=== PATIENT | female | born 1945 | race Caucasian/White ===

== ENCOUNTER 2020-05-14 11:24 | Outpatient (CLI) | payer MEDICARE, SELFPAY ==
--- NOTE | 2020-05-14 10:42 | DI.RAD_ITS ---
EXAM: XR FINGER RT RING CLINICAL HISTORY: deformity of finger TECHNIQUE: COMPARISON: No exams were available for comparison FINDINGS: Three views were obtained. There is a well-circumscribed 7 millimeterlytic lesion of base of the dis alisson phalanx of the ring finger with a sclerotic rim. This may represent a degenerative subchondral c yst . Other etiologies including epidermal inclusion cyst are possible. Moderate degenerative rodriguez es noted involving the IP joints of the ring finger. 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 RADIATION DOSE DELIVERED: Total DLP
== END 2020-05-14 11:44 ==
PROVIDERS: PCP Nurse Practitioner Family; Referring Provider Nurse Practitioner Family; Visit Provider Orthopaedic Surgery
DX: M20.091 Other deformity of right finger(s) (principal); M85.441 Solitary bone cyst, right hand; M19.041 Primary osteoarthritis, right hand; M79.641 Pain in right hand
CPT/HCPCS: 99201; 99202; 73140

== ENCOUNTER 2020-05-19 08:18 | Day surgery (SDC) | payer MEDICARE, SELFPAY ==
[2020-05-19 09:01] VITALS: BP 135/86; PULSE 105; RESP 16; TEMP 36.6; O2SAT 95
[2020-05-19] MEDS: Lidocaine 2% Multi-Dose 50 ML VIAL (09:52)
--- NOTE | 2020-05-19 10:00 | SKI_PTH ---
PATIENT: Bonny Huerta LOC: [facility] U#:[id number] AGE/SX: 75/F ROOM: RE05/19/[address]: Nate Welsh MD : [id number] BED: DIS: 05/19/2020 SPEC #: [id number] RECD: 05/19/20 12:31 STATUS: WILMAN REQ #: [id number] GALE: 05/19/20 10:[address]: Nate Welsh DEPT: Surgical Specimen RECD BY: Miley Neves ENTERED: 05/19/20 12:33 SP TYPE: SARA BLAKE DR: Enid Boyer Tissues: 1 - SKIN CYST/TAG/DEBRIDEMENT Procedures: GROSS AND MICRO LEVEL 3 DECALCIFICATION Comments: [id number]
--- NOTE | 2020-05-19 10:35 | W.PM.DSUDISC ---
Discharge Plan Disposition Patient Disposition: HOME Condition: Good Discharge Details Reason For Visit: FINGERNAIL EXCISION, CYST EXCISION DISTAL PHALANX Attending Provider: Nate Welsh Primary Care Provider: Enid Boyer Home Meds and New Rx's Prescriptions: New oxycodone-acetaminophen 5-325 mg tablet 1 tab PO Q6H PRN (Reason: pain) Qty: 7 RF: 0 Continued aspirin [Aspir-81] 81 MG tablet,delayed release (DR/EC) 1 tab PO DAILY RF: 0 calcium carbonate-vitamin D3 [Caltrate with Vitamin D3] 1 EACH tablet 1 ea PO DAILY RF: 0 simvastatin [Zocor] 20 MG tablet 1 tab PO HS Qty: 90 RF: 4 cholecalciferol (vitamin D3) 1,000 UNITS tablet 1,000 units PO DAILY RF: 0 Discharge Instructions Additional Instructions: Keep dressings dry. Don't be concerned if there is some bleeding through the dressings. Follow up in 's office in one week for dressing change and wound check. Take tylenol or ibuprofen for pain. Referrals: Nate Welsh MD [ [facility] STAFF PHYSICIAN] - (f/u in one week) Equipment/Supplies: Splint Activity:: Activity as Tolerated Remove Dressings/Wound Care:: Do Not Remove Shower/Bathe:: Cover Diet:: As Tolerated Discharge Orders Discharge Orders: Discharge Order (Routine); Ordered 05/19/20 Ordered By: Nate Welsh
--- NOTE | 2020-05-19 13:18 | ROE_ITS ---
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 SURGEON: Nate Welsh ANESTHESIA: local PATHOLOGY: other COMPLICATIONS: None Patient was transported to: same day Patient's condition: stable Indications: Is a 75-year-old white female who is noted a deformity of the fingernail of her right ring finger of several months duration. X-rays show that the deformity was caused by an expanding intraosseous cyst in the distal phalanx of the right ring finger. The dorsal expansion of this cyst caused the germinal matrix to be distorted along with the fingernail. X-rays confirmed the interosseous cyst of the distal phalanx. It is extra-articular but expanding dorsally. It appears benign. Excision of the cyst with biopsy was recommended to correct the deformity. I indicated that I might not be able to preserve the germinal matrix of the nail. If that was the case intraoperatively would remove the fingernail and the germinal matrix along with the cyst. Risk and complication procedure explained to patient in detail. She agreed with my recommendations. Procedure Description: Patient taken the operating room on 05/18/2020 she operating table. The right hand was prepped and draped free in usual sterile fashion. [place] drain was used around the the ring finger as a tourniquet. A digital block was accomplished using a 2% Xylocaine solution and the 0.5% Marcaine with epinephrine solution at the level of the metacarpal neck of the ring finger. Incision was made at the ulnar corner of the cuticle of the fingernail and sharp dissection was used to free the skin from the fingernail and the germinal matrix and exposing the extensor tendon attachment to the distal phalanx. I was able to enter the cyst on the ulnar side of the distal phalanx and avoid detaching the extensor tendon from the distal phalanx. The cyst was filled with a friable fibrous tissue. I curetted this tissue and sent it for pathological examination. I then proceeded to use the curettes and a rongeur to excise the dorsal bone that was impinging on the germinal matrix. The germinal matrix could not be salvaged over the ulnar one half of the matrix. I therefore decided to remove the damaged nail and the germinal matrix in its entirety. This will prevent recurrent deformity of the nail. I remove the germinal matrix by excising it sharply with a scalpel and further curetting it so there were no remnants of the germinal matrix remaining. I left the nailbed covering the distal phalanx intact. The wound was irrigated with saline solution. I cut a small piece of aluminum foil from the package of the Xeroform gauze inserted it under the skin to the extensor tendon attachment. I then sutured it in place with 2 sutures of 4-0 nylon 1 radial and 1 ulna. I then closed the incision that was made at the ulnar corner of the cuticle and curving onto the distal phalanx with a few interrupted 4-0 nylon sutures. This reconstituted the cuticle of the nail and gave the finger a more anatomic appe arance. I then performed a digital nerve block just proximal to the end of the incision with 0.5% Marcaine with epinephrine solution. The [place] tourniquet was released. Hemostasis obtained with simple direct pressure. Wound was dressed with Xeroform gauze followed by tube gauze. A dorsal AlumaFoam splint was applied over the dressings to keep the DIP joint in extension and avoid injury to the extensor tendon attachment. Patient tolerated suture well was discharged to day surgery in good condition. Patient was discharged home from day surgery unit with instructions to keep her dressings clean and dry for the next week. She will follow-up with Dr. Welsh in 1 week for dressing change and wound check. Should take Tylenol or ibuprofen for pain as needed.
== END 2020-05-19 11:17 | disposition home or self-care (01) ==
PROVIDERS: PCP Nurse Practitioner Family; Visit Provider Orthopaedic Surgery
PROC: (CPT 26210; principal; 2020-05-19 09:00)
DX: D16.11 Benign neoplasm of short bones of right upper limb (principal); L60.8 Other nail disorders
CPT/HCPCS: 26210; 11750; 88304; 88311

== ENCOUNTER 2020-05-27 10:51 | Outpatient (CLI) | payer MEDICARE, SELFPAY ==
--- NOTE | 2020-05-27 10:15 | DI.RAD_ITS ---
EXAM: XR FINGER RT RING INDICATION: f/u. COMPARISON: No exams were available for comparison TECHNIQUE: 2D digital imaging was performed. FINDINGS: The cystic area is again noted in the base of the distal phalanx. Degenerative changes are noted at the distal interphalangeal joint. The bones appear osteopenic. DATA REPOSITORY: RADIATION DOSE DELIVERED:
== END 2020-05-27 11:11 ==
PROVIDERS: PCP Nurse Practitioner Family; Referring Provider Nurse Practitioner Family; Visit Provider Orthopaedic Surgery
DX: M19.041 Primary osteoarthritis, right hand (principal); Z47.89 Encounter for other orthopedic aftercare
CPT/HCPCS: 73140

== ENCOUNTER → 2020-06-03 08:53 | Outpatient (BNVA) | payer MEDICARE, SELFPAY | PROVIDERS: PCP Nurse Practitioner Family; Referring Provider Nurse Practitioner Family; Visit Provider Orthopaedic Surgery | DX: M19.041 Primary osteoarthritis, right hand (principal); Z47.89 Encounter for other orthopedic aftercare ==

== ENCOUNTER → 2020-06-17 08:47 | Outpatient (BNVA) | payer MEDICARE, SELFPAY | PROVIDERS: PCP Nurse Practitioner Family; Referring Provider Nurse Practitioner Family; Visit Provider Orthopaedic Surgery | DX: Z47.89 Encounter for other orthopedic aftercare (principal); D16.11 Benign neoplasm of short bones of right upper limb ==

== ENCOUNTER → 2020-09-24 12:18 | Outpatient (BNVA) | payer MEDICARE, SELFPAY | PROVIDERS: PCP Nurse Practitioner Family; Referring Provider Optometrist; Visit Provider Psychiatry & Neurology Neurology | DX: H02.401 Unspecified ptosis of right eyelid (principal) | CPT/HCPCS: 99215 ==

== ENCOUNTER → 2020-11-05 07:18 | Outpatient (BNVA) | payer MEDICARE, SELFPAY | PROVIDERS: PCP Nurse Practitioner Family; Referring Provider Nurse Practitioner Family; Visit Provider Psychiatry & Neurology Neurology | DX: G70.00 Myasthenia gravis without (acute) exacerbation (principal) | CPT/HCPCS: 99214 ==

== ENCOUNTER → 2020-12-02 12:19 | Outpatient (BNVA) | payer MEDICARE, SELFPAY | PROVIDERS: PCP Nurse Practitioner Family; Referring Provider Nurse Practitioner Family; Visit Provider Psychiatry & Neurology Neurology | DX: G70.00 Myasthenia gravis without (acute) exacerbation (principal) | CPT/HCPCS: 99214 ==

== ENCOUNTER → 2021-01-14 07:37 | Outpatient (BNVA) | payer MEDICARE, SELFPAY | PROVIDERS: PCP Nurse Practitioner Family; Referring Provider Nurse Practitioner Family; Visit Provider Psychiatry & Neurology Neurology | DX: G70.00 Myasthenia gravis without (acute) exacerbation (principal) | CPT/HCPCS: 99443 ==

== ENCOUNTER 2021-01-20 03:34 | Outpatient (CLI) | payer MEDICARE, SELFPAY ==
[2021-01-20 08:02] LABS: Abs Immature Grans 0.07 10^3/uL (0.0-0.06); Absolute Eosinophil Count 0.33 10^3/uL (0.0-0.7); Absolute Lymphocyte Count 1.38 10^3/uL (1.2-3.4); Absolute Monocyte Count 0.61 10^3/uL (0.1-0.8); Absolute Neutrophil Count 9.72 10^3/uL (1.2-6.7); Basophils % 0.7; Eosinophils % 2.7; HCT 45.9 % (36.0-46.0); HGB 14.3 g/dL (11.2-15.7); Immature Grans % 0.6; Lymphocytes % 11.3; MCH 27.3 pg (27.0-33.0); MCHC 31.2 % (32.0-36.0); MCV 87.6 fL (80-95); MPV 8.9 fL (8.0-11.0); Neutrophils % 79.7; Nucleated RBC 0 %; Platelet Count 208 10^3/uL (130-400); RBC 5.24 10^6/uL (3.93-5.22); RDW 13.6 % (11.7-14.6); RDW-SD 43.8 fL; WBC 12.19 10^3/uL (4.4-10.8)
[2021-01-20 08:03] LABS: Absolute Basophil Count 0.09 10^3/uL (0.0-0.2)
[2021-01-20 08:15] LABS: ALT 16 U/L (14-59); AST 12 U/L (15-37); Albumin 3.2 g/dL (3.4-5.0); Alkaline Phosphatase 78 U/L (46-116); Anion Gap 7.3 mmol/L (3-11); BUN 11 mg/dL (7-18); Bilirubin, Total 0.7 mg/dL (0.2-1.0); CO2 29.7 mmol/L (21.0-32.0); CREATININE 0.9 mg/dL (0.55-1.02); Calcium 9.6 mg/dL (8.5-10.1); Chloride 107 mmol/L (98-107); Glucose 100 mg/dL (74-106); Magnesium 1.9 mg/dL (1.8-2.4); Potassium 3.9 mmol/L (3.5-5.1); Sodium 144 mmol/L (136-145); Total Protein 7.5 g/dL (6.4-8.2)
== END 2021-01-20 03:35 | disposition home or self-care (01) ==
LOC: LBO 03:34
PROVIDERS: PCP Nurse Practitioner Family; Visit Provider Internal Medicine Medical Oncology
DX: C34.12 Malignant neoplasm of upper lobe, left bronchus or lung (principal)
CPT/HCPCS: 36415; 80053; 83735; 85025

== ENCOUNTER 2021-01-27 02:50 | Outpatient (CLI) | payer MEDICARE, SELFPAY ==
[2021-01-27 08:18] LABS: Absolute Basophil Count 0.06 10^3/uL (0.0-0.2); Absolute Lymphocyte Count 1.07 10^3/uL (1.2-3.4); Absolute Monocyte Count 0.39 10^3/uL (0.1-0.8); Absolute Neutrophil Count 6.62 10^3/uL (1.2-6.7); Basophils % 0.7; Eosinophils % 2.4; HCT 40.4 % (36.0-46.0); HGB 13.2 g/dL (11.2-15.7); Immature Grans % 1.2; Lymphocytes % 12.7; MCH 27.9 pg (27.0-33.0); MCHC 32.7 % (32.0-36.0); MCV 85.4 fL (80-95); MPV 9.5 fL (8.0-11.0); Monocytes % 4.6; Neutrophils % 78.4; Nucleated RBC 0 %; Platelet Count 186 10^3/uL (130-400); RBC 4.73 10^6/uL (3.93-5.22); RDW 13.3 % (11.7-14.6); WBC 8.44 10^3/uL (4.4-10.8)
[2021-01-27 08:26] LABS: ALT 21 U/L (14-59); AST 8 U/L (15-37); Alkaline Phosphatase 74 U/L (46-116); Anion Gap 8.1 mmol/L (3-11); BUN 14 mg/dL (7-18); Bilirubin, Total 0.5 mg/dL (0.2-1.0); CO2 27.9 mmol/L (21.0-32.0); CREATININE 0.7 mg/dL (0.55-1.02); Calcium 9.2 mg/dL (8.5-10.1); Chloride 106 mmol/L (98-107); Glucose 102 mg/dL (74-106); Potassium 4.3 mmol/L (3.5-5.1); Sodium 142 mmol/L (136-145); Total Protein 6.9 g/dL (6.4-8.2)
== END 2021-01-27 02:51 | disposition home or self-care (01) ==
LOC: LBO 02:50
PROVIDERS: PCP Nurse Practitioner Family; Visit Provider Internal Medicine Medical Oncology
DX: C34.12 Malignant neoplasm of upper lobe, left bronchus or lung (principal)
CPT/HCPCS: 36415; 80053; 83735; 85025

== ENCOUNTER 2021-02-09 03:02 | Outpatient (CLI) | payer MEDICARE, SELFPAY ==
[2021-02-09 09:14] LABS: Abs Immature Grans 0.06 10^3/uL (0.0-0.06); Absolute Basophil Count 0.09 10^3/uL (0.0-0.2); Absolute Eosinophil Count 0.05 10^3/uL (0.0-0.7); Absolute Lymphocyte Count 1.43 10^3/uL (1.2-3.4); Absolute Monocyte Count 0.52 10^3/uL (0.1-0.8); Absolute Neutrophil Count 5.45 10^3/uL (1.2-6.7); Basophils % 1.2; Eosinophils % 0.7; HCT 41.7 % (36.0-46.0); HGB 13.3 g/dL (11.2-15.7); Immature Grans % 0.8; Lymphocytes % 18.8; MCH 28.1 pg (27.0-33.0); MCHC 31.9 % (32.0-36.0); MPV 8.8 fL (8.0-11.0); Monocytes % 6.8; Neutrophils % 71.7; Nucleated RBC 0 %; Platelet Count 168 10^3/uL (130-400); RBC 4.74 10^6/uL (3.93-5.22); RDW 14.6 % (11.7-14.6)
[2021-02-09 09:28] LABS: ALT 18 U/L (14-59); AST 11 U/L (15-37); Albumin 3.2 g/dL (3.4-5.0); Alkaline Phosphatase 80 U/L (46-116); Anion Gap 7.4 mmol/L (3-11); BUN 13 mg/dL (7-18); Bilirubin, Total 0.3 mg/dL (0.2-1.0); CO2 28.6 mmol/L (21.0-32.0); CREATININE 0.8 mg/dL (0.55-1.02); Chloride 108 mmol/L (98-107); Glucose 100 mg/dL (74-106); Magnesium 2.1 mg/dL (1.8-2.4); Potassium 4.1 mmol/L (3.5-5.1); Sodium 144 mmol/L (136-145); Total Protein 6.6 g/dL (6.4-8.2)
== END 2021-02-09 03:03 | disposition home or self-care (01) ==
LOC: LBO 03:02
PROVIDERS: PCP Nurse Practitioner Family; Visit Provider Internal Medicine Medical Oncology
DX: C34.12 Malignant neoplasm of upper lobe, left bronchus or lung (principal)
CPT/HCPCS: 36415; 80053; 83735; 85025

== ENCOUNTER 2021-02-16 03:18 | Outpatient (CLI) | payer MEDICARE, SELFPAY ==
[2021-02-16 09:14] LABS: Abs Immature Grans 0.13 10^3/uL (0.0-0.06); Absolute Basophil Count 0.09 10^3/uL (0.0-0.2); Absolute Eosinophil Count 0.02 10^3/uL (0.0-0.7); Absolute Lymphocyte Count 1.09 10^3/uL (1.2-3.4); Absolute Monocyte Count 0.18 10^3/uL (0.1-0.8); Absolute Neutrophil Count 6.93 10^3/uL (1.2-6.7); Basophils % 1.1; Eosinophils % 0.2; HCT 44.5 % (36.0-46.0); Immature Grans % 1.5; Lymphocytes % 12.9; MCH 27.9 pg (27.0-33.0); MCHC 31.5 % (32.0-36.0); MCV 88.6 fL (80-95); MPV 9.7 fL (8.0-11.0); Monocytes % 2.1; Neutrophils % 82.2; Nucleated RBC 0 %; Platelet Count 109 10^3/uL (130-400); RBC 5.02 10^6/uL (3.93-5.22); RDW 14.3 % (11.7-14.6); RDW-SD 45.6 fL; WBC 8.44 10^3/uL (4.4-10.8)
[2021-02-16 09:27] LABS: ALT 21 U/L (14-59); AST 14 U/L (15-37); Albumin 3.4 g/dL (3.4-5.0); Alkaline Phosphatase 66 U/L (46-116); Anion Gap 7.7 mmol/L (3-11); BUN 13 mg/dL (7-18); Bilirubin, Total 0.4 mg/dL (0.2-1.0); CO2 29.3 mmol/L (21.0-32.0); CREATININE 0.8 mg/dL (0.55-1.02); Calcium 9.6 mg/dL (8.5-10.1); Chloride 104 mmol/L (98-107); Glucose 102 mg/dL (74-106); Magnesium 1.9 mg/dL (1.8-2.4); Potassium 4.3 mmol/L (3.5-5.1); Sodium 141 mmol/L (136-145); Total Protein 6.6 g/dL (6.4-8.2)
== END 2021-02-16 03:19 | disposition home or self-care (01) ==
LOC: LBO 03:18
PROVIDERS: PCP Nurse Practitioner Family; Visit Provider Internal Medicine Medical Oncology
DX: C34.12 Malignant neoplasm of upper lobe, left bronchus or lung (principal)
CPT/HCPCS: 36415; 80053; 83735; 85025

== ENCOUNTER 2021-03-09 03:15 | Outpatient (CLI) | payer MEDICARE, SELFPAY ==
[2021-03-09 12:14] LABS: Abs Immature Grans 0.09 10^3/uL (0.0-0.06); Absolute Basophil Count 0.05 10^3/uL (0.0-0.2); Absolute Eosinophil Count 0.01 10^3/uL (0.0-0.7); Absolute Lymphocyte Count 0.85 10^3/uL (1.2-3.4); Absolute Neutrophil Count 9.21 10^3/uL (1.2-6.7); Basophils % 0.5; Eosinophils % 0.1; HCT 43.7 % (36.0-46.0); HGB 13.9 g/dL (11.2-15.7); Immature Grans % 0.9; Lymphocytes % 8.2; MCH 28.9 pg (27.0-33.0); MCHC 31.8 % (32.0-36.0); MCV 90.9 fL (80-95); MPV 8.6 fL (8.0-11.0); Monocytes % 1.9; Neutrophils % 88.4; Nucleated RBC 0 %; Platelet Count 154 10^3/uL (130-400); RBC 4.81 10^6/uL (3.93-5.22); RDW 16.5 % (11.7-14.6); WBC 10.41 10^3/uL (4.4-10.8)
[2021-03-09 12:28] LABS: ALT 19 U/L (14-59); AST 11 U/L (15-37); Albumin 3.6 g/dL (3.4-5.0); Alkaline Phosphatase 66 U/L (46-116); Anion Gap 10.5 mmol/L (3-11); BUN 15 mg/dL (7-18); Bilirubin, Total 0.5 mg/dL (0.2-1.0); CO2 25.5 mmol/L (21.0-32.0); CREATININE 0.8 mg/dL (0.55-1.02); Calcium 9.4 mg/dL (8.5-10.1); Chloride 107 mmol/L (98-107); Glucose 119 mg/dL (74-106); Potassium 4.2 mmol/L (3.5-5.1); Sodium 143 mmol/L (136-145); Total Protein 6.9 g/dL (6.4-8.2)
== END 2021-03-09 03:16 | disposition home or self-care (01) ==
LOC: LBO 03:15
PROVIDERS: PCP Nurse Practitioner Family; Visit Provider Internal Medicine Medical Oncology
DX: C34.12 Malignant neoplasm of upper lobe, left bronchus or lung (principal)
CPT/HCPCS: 36415; 80053; 83735; 85025

== ENCOUNTER 2021-03-16 03:42 | Outpatient (CLI) | payer MEDICARE, SELFPAY ==
[2021-03-16 13:06] LABS: Abs Immature Grans 0.07 10^3/uL (0.0-0.06); Absolute Basophil Count 0.05 10^3/uL (0.0-0.2); Absolute Eosinophil Count 0.02 10^3/uL (0.0-0.7); Absolute Lymphocyte Count 0.67 10^3/uL (1.2-3.4); Absolute Monocyte Count 0.22 10^3/uL (0.1-0.8); Basophils % 0.8; Eosinophils % 0.3; HCT 40.6 % (36.0-46.0); HGB 12.9 g/dL (11.2-15.7); Immature Grans % 1.2; Lymphocytes % 11.3; MCH 29.1 pg (27.0-33.0); MCHC 31.8 % (32.0-36.0); MCV 91.4 fL (80-95); Monocytes % 3.7; Neutrophils % 82.7; Nucleated RBC 0 %; Platelet Count 179 10^3/uL (130-400); RBC 4.44 10^6/uL (3.93-5.22); RDW-SD 53.1 fL; WBC 5.93 10^3/uL (4.4-10.8)
[2021-03-16 13:19] LABS: ALT 28 U/L (14-59); AST 11 U/L (15-37); Albumin 3.6 g/dL (3.4-5.0); Alkaline Phosphatase 72 U/L (46-116); Anion Gap 9.5 mmol/L (3-11); BUN 13 mg/dL (7-18); Bilirubin, Total 0.3 mg/dL (0.2-1.0); CO2 27.5 mmol/L (21.0-32.0); CREATININE 0.7 mg/dL (0.55-1.02); Calcium 9.6 mg/dL (8.5-10.1); Chloride 105 mmol/L (98-107); Glucose 109 mg/dL (74-106); Magnesium 1.9 mg/dL (1.8-2.4); Potassium 4.6 mmol/L (3.5-5.1); Sodium 142 mmol/L (136-145); Total Protein 6.7 g/dL (6.4-8.2)
== END 2021-03-16 03:43 | disposition home or self-care (01) ==
LOC: LBO 03:42
PROVIDERS: PCP Nurse Practitioner Family; Visit Provider Internal Medicine Medical Oncology
DX: C34.12 Malignant neoplasm of upper lobe, left bronchus or lung (principal)
CPT/HCPCS: 36415; 80053; 83735; 85025

== ENCOUNTER → 2021-03-18 14:34 | Outpatient (BNVA) | payer MEDICARE, SELFPAY | PROVIDERS: PCP Nurse Practitioner Family; Referring Provider Nurse Practitioner Family; Visit Provider Psychiatry & Neurology Neurology | DX: G70.00 Myasthenia gravis without (acute) exacerbation (principal) | CPT/HCPCS: 99213 ==

== ENCOUNTER 2021-03-30 02:19 | Outpatient (CLI) | payer MEDICARE, SELFPAY ==
[2021-03-30 12:24] LABS: Abs Immature Grans 0.06 10^3/uL (0.0-0.06); Absolute Basophil Count 0.04 10^3/uL (0.0-0.2); Absolute Eosinophil Count 0.01 10^3/uL (0.0-0.7); Absolute Monocyte Count 0.25 10^3/uL (0.1-0.8); Absolute Neutrophil Count 5.45 10^3/uL (1.2-6.7); Basophils % 0.6; Eosinophils % 0.1; HCT 41.4 % (36.0-46.0); HGB 13.2 g/dL (11.2-15.7); Immature Grans % 0.9; Lymphocytes % 14.7; MCH 29.2 pg (27.0-33.0); MCHC 31.9 % (32.0-36.0); MCV 91.6 fL (80-95); Monocytes % 3.7; Nucleated RBC 0 %; Platelet Count 103 10^3/uL (130-400); RBC 4.52 10^6/uL (3.93-5.22); RDW 16.6 % (11.7-14.6); RDW-SD 55.2 fL; WBC 6.81 10^3/uL (4.4-10.8)
[2021-03-30 12:56] LABS: ALT 21 U/L (14-59); AST 12 U/L (15-37); Albumin 3.7 g/dL (3.4-5.0); Alkaline Phosphatase 64 U/L (46-116); Anion Gap 8.6 mmol/L (3-11); BUN 13 mg/dL (7-18); Bilirubin, Total 0.4 mg/dL (0.2-1.0); CO2 26.4 mmol/L (21.0-32.0); CREATININE 0.7 mg/dL (0.55-1.02); Calcium 9.4 mg/dL (8.5-10.1); Chloride 106 mmol/L (98-107); Glucose 143 mg/dL (74-106); Potassium 4.2 mmol/L (3.5-5.1); Sodium 141 mmol/L (136-145)
== END 2021-03-30 02:20 | disposition home or self-care (01) ==
LOC: LBO 02:19
PROVIDERS: PCP Nurse Practitioner Family; Visit Provider Internal Medicine Medical Oncology
DX: C34.12 Malignant neoplasm of upper lobe, left bronchus or lung (principal)
CPT/HCPCS: 36415; 80053; 83735; 85025

== ENCOUNTER 2021-04-06 03:50 | Outpatient (CLI) | payer MEDICARE, SELFPAY ==
[2021-04-06 12:54] LABS: Abs Immature Grans 0.05 10^3/uL (0.0-0.06); Absolute Basophil Count 0.06 10^3/uL (0.0-0.2); Absolute Eosinophil Count 0.01 10^3/uL (0.0-0.7); Absolute Lymphocyte Count 0.76 10^3/uL (1.2-3.4); Absolute Monocyte Count 0.15 10^3/uL (0.1-0.8); Absolute Neutrophil Count 5.65 10^3/uL (1.2-6.7); Basophils % 0.9; Eosinophils % 0.1; HCT 38.7 % (36.0-46.0); HGB 12.3 g/dL (11.2-15.7); Immature Grans % 0.7; Lymphocytes % 11.4; MCH 29.6 pg (27.0-33.0); MCHC 31.8 % (32.0-36.0); MPV 9.9 fL (8.0-11.0); Monocytes % 2.2; Neutrophils % 84.7; Nucleated RBC 0 %; Platelet Count 101 10^3/uL (130-400); RBC 4.16 10^6/uL (3.93-5.22); RDW 16.1 % (11.7-14.6); RDW-SD 54.8 fL; WBC 6.68 10^3/uL (4.4-10.8)
[2021-04-06 13:36] LABS: ALT 17 U/L (14-59); AST 11 U/L (15-37); Albumin 3.5 g/dL (3.4-5.0); Alkaline Phosphatase 72 U/L (46-116); Anion Gap 7.8 mmol/L (3-11); BUN 15 mg/dL (7-18); Bilirubin, Total 0.3 mg/dL (0.2-1.0); CO2 29.2 mmol/L (21.0-32.0); CREATININE 0.8 mg/dL (0.55-1.02); Calcium 9.4 mg/dL (8.5-10.1); Chloride 107 mmol/L (98-107); Glucose 172 mg/dL (74-106); Magnesium 1.8 mg/dL (1.8-2.4); Potassium 4.1 mmol/L (3.5-5.1); Sodium 144 mmol/L (136-145); Total Protein 6.5 g/dL (6.4-8.2)
== END 2021-04-06 03:51 | disposition home or self-care (01) ==
LOC: LBO 03:50
PROVIDERS: PCP Nurse Practitioner Family; Visit Provider Internal Medicine Medical Oncology
DX: C34.12 Malignant neoplasm of upper lobe, left bronchus or lung (principal)
CPT/HCPCS: 36415; 80053; 83735; 85025

== ENCOUNTER → 2021-05-05 07:40 | Outpatient (BNVA) | payer MEDICARE, SELFPAY | PROVIDERS: PCP Nurse Practitioner Family; Referring Provider Nurse Practitioner Family; Visit Provider Psychiatry & Neurology Neurology | DX: G70.00 Myasthenia gravis without (acute) exacerbation (principal) | CPT/HCPCS: 99442 ==

== ENCOUNTER → 2021-07-01 07:36 | Outpatient (BNVA) | payer MEDICARE, SELFPAY | PROVIDERS: PCP Nurse Practitioner Family; Referring Provider Nurse Practitioner Family; Visit Provider Psychiatry & Neurology Neurology | DX: G70.00 Myasthenia gravis without (acute) exacerbation (principal) | CPT/HCPCS: 99442 ==

== ENCOUNTER → 2021-09-02 07:16 | Outpatient (BNVA) | payer MEDICARE, SELFPAY | PROVIDERS: PCP Nurse Practitioner Family; Referring Provider Nurse Practitioner Family; Visit Provider Psychiatry & Neurology Neurology | DX: G70.00 Myasthenia gravis without (acute) exacerbation (principal) | CPT/HCPCS: 99442 ==

== ENCOUNTER → 2021-10-13 12:20 | Outpatient (BNVA) | payer MEDICARE, SELFPAY | PROVIDERS: PCP Nurse Practitioner Family; Referring Provider Nurse Practitioner Family; Visit Provider Psychiatry & Neurology Neurology | DX: G70.00 Myasthenia gravis without (acute) exacerbation (principal); R06.00 Dyspnea, unspecified | CPT/HCPCS: 99214 ==

== ENCOUNTER → 2021-11-02 09:38 | Outpatient (BNVA) | payer MEDICARE, SELFPAY | PROVIDERS: PCP Nurse Practitioner Family; Referring Provider Nurse Practitioner Family; Visit Provider Psychiatry & Neurology Neurology | DX: G70.00 Myasthenia gravis without (acute) exacerbation (principal) | CPT/HCPCS: 99213 ==

== ENCOUNTER → 2021-11-18 12:22 | Outpatient (BNVA) | payer MEDICARE, SELFPAY | PROVIDERS: PCP Nurse Practitioner Family; Referring Provider Nurse Practitioner Family; Visit Provider Psychiatry & Neurology Neurology | DX: G70.00 Myasthenia gravis without (acute) exacerbation (principal); R42 Dizziness and giddiness | CPT/HCPCS: 99214 ==

== ENCOUNTER → 2021-12-24 07:18 | Outpatient (BNVA) | payer MEDICARE, SELFPAY | PROVIDERS: PCP Nurse Practitioner Family; Referring Provider Nurse Practitioner Family; Visit Provider Psychiatry & Neurology Neurology | DX: G70.00 Myasthenia gravis without (acute) exacerbation (principal); R40.4 Transient alteration of awareness | CPT/HCPCS: 99443 ==

== ENCOUNTER → 2022-02-04 09:20 | Outpatient (BNVA) | payer MEDICARE, SELFPAY | PROVIDERS: PCP Nurse Practitioner Family; Referring Provider Nurse Practitioner Family; Visit Provider Psychiatry & Neurology Neurology | DX: R41.3 Other amnesia (principal); G70.00 Myasthenia gravis without (acute) exacerbation | CPT/HCPCS: 99214 ==

== ENCOUNTER → 2022-03-10 07:43 | Outpatient (BNVA) | payer MEDICARE, SELFPAY | PROVIDERS: PCP Nurse Practitioner Family; Referring Provider Nurse Practitioner Family; Visit Provider Psychiatry & Neurology Neurology | DX: R41.3 Other amnesia (principal); G70.00 Myasthenia gravis without (acute) exacerbation | CPT/HCPCS: 99442 ==

== ENCOUNTER → 2022-04-07 09:45 | Outpatient (BNVA) | payer MEDICARE, SELFPAY | PROVIDERS: PCP Nurse Practitioner Family; Referring Provider Nurse Practitioner Family; Visit Provider Psychiatry & Neurology Neurology | DX: R40.4 Transient alteration of awareness (principal); R41.3 Other amnesia; G70.00 Myasthenia gravis without (acute) exacerbation | CPT/HCPCS: 99214 ==

== ENCOUNTER → 2022-04-28 14:32 | Outpatient (BNVA) | payer MEDICARE, SELFPAY | PROVIDERS: PCP Nurse Practitioner Family; Referring Provider Nurse Practitioner Family; Visit Provider Psychiatry & Neurology Neurology | DX: R40.4 Transient alteration of awareness (principal); R41.3 Other amnesia; G70.00 Myasthenia gravis without (acute) exacerbation | CPT/HCPCS: 99214 ==

== ENCOUNTER → 2022-06-09 10:13 | Outpatient (BNVA) | payer MEDICARE, SELFPAY | PROVIDERS: PCP Nurse Practitioner Family; Referring Provider Nurse Practitioner Family; Visit Provider Psychiatry & Neurology Neurology | DX: R40.4 Transient alteration of awareness (principal); R20.2 Paresthesia of skin; R41.0 Disorientation, unspecified; G70.00 Myasthenia gravis without (acute) exacerbation | CPT/HCPCS: 99215 ==

== ENCOUNTER → 2022-07-27 09:25 | Outpatient (BNVA) | payer MEDICARE, SELFPAY | PROVIDERS: PCP Nurse Practitioner Family; Referring Provider Nurse Practitioner Family; Visit Provider Psychiatry & Neurology Neurology | DX: Z79.52 Long term (current) use of systemic steroids (principal); R46.89 Other symptoms and signs involving appearance and behavior; R41.3 Other amnesia; M48.02 Spinal stenosis, cervical region; G70.01 Myasthenia gravis with (acute) exacerbation | CPT/HCPCS: 99215 ==

== ENCOUNTER → 2022-09-15 09:04 | Outpatient (BNVA) | payer MEDICARE, SELFPAY | PROVIDERS: PCP Nurse Practitioner Family; Referring Provider Nurse Practitioner Family; Visit Provider Psychiatry & Neurology Neurology | DX: R41.3 Other amnesia (principal); R20.2 Paresthesia of skin; G70.00 Myasthenia gravis without (acute) exacerbation; G70.01 Myasthenia gravis with (acute) exacerbation | CPT/HCPCS: 99215 ==

== ENCOUNTER → 2023-01-26 09:48 | Outpatient (BNVA) | payer MEDICARE, SELFPAY | PROVIDERS: PCP Nurse Practitioner Family; Referring Provider Nurse Practitioner Family; Visit Provider Psychiatry & Neurology Neurology | DX: G70.00 Myasthenia gravis without (acute) exacerbation (principal); R41.89 Other symptoms and signs involving cognitive functions and awareness; R20.2 Paresthesia of skin | CPT/HCPCS: 99215 ==

== ENCOUNTER → 2023-04-27 08:05 | Outpatient (BNVA) | payer MEDICARE, SELFPAY | PROVIDERS: PCP Nurse Practitioner Family; Referring Provider Nurse Practitioner Family; Visit Provider Psychiatry & Neurology Neurology | DX: G70.00 Myasthenia gravis without (acute) exacerbation (principal); R41.3 Other amnesia; R20.2 Paresthesia of skin; J44.9 Chronic obstructive pulmonary disease, unspecified | CPT/HCPCS: 99214 ==

== ENCOUNTER → 2023-06-20 10:59 | Outpatient (BNVA) | payer MEDICARE, SELFPAY | PROVIDERS: PCP Nurse Practitioner Family; Referring Provider Nurse Practitioner Family; Visit Provider Physician Assistant Surgical | DX: J44.9 Chronic obstructive pulmonary disease, unspecified (principal); C34.90 Malignant neoplasm of unspecified part of unspecified bronchus or lung; F17.210 Nicotine dependence, cigarettes, uncomplicated; Z23 Encounter for immunization | CPT/HCPCS: 90694R; 99214; G0008 ==

== ENCOUNTER → 2023-08-02 09:56 | Outpatient (BNVA) | payer MEDICARE, SELFPAY | PROVIDERS: PCP Nurse Practitioner Family; Referring Provider Nurse Practitioner Family; Visit Provider Psychiatry & Neurology Neurology | DX: G70.00 Myasthenia gravis without (acute) exacerbation (principal) | CPT/HCPCS: 99443 ==

== ENCOUNTER → 2023-11-16 12:42 | Outpatient (BNVA) | payer MEDICARE, SELFPAY | PROVIDERS: PCP Nurse Practitioner Family; Referring Provider Nurse Practitioner Family; Visit Provider Psychiatry & Neurology Neurology | DX: R41.3 Other amnesia (principal); G70.00 Myasthenia gravis without (acute) exacerbation | CPT/HCPCS: 99215 ==

== ENCOUNTER → 2023-12-20 10:25 | Outpatient (BNVA) | payer MEDICARE, SELFPAY | PROVIDERS: PCP Nurse Practitioner Family; Referring Provider Nurse Practitioner Family; Visit Provider Student in an Organized Health Care Education/Training Program | DX: C34.90 Malignant neoplasm of unspecified part of unspecified bronchus or lung (principal); J44.9 Chronic obstructive pulmonary disease, unspecified; F17.200 Nicotine dependence, unspecified, uncomplicated | CPT/HCPCS: 99214 ==

== ENCOUNTER → 2024-02-15 06:47 | Outpatient (BNVA) | payer MEDICARE, SELFPAY | PROVIDERS: PCP Nurse Practitioner Family; Referring Provider Nurse Practitioner Family; Visit Provider Psychiatry & Neurology Neurology | DX: G70.00 Myasthenia gravis without (acute) exacerbation (principal); R41.3 Other amnesia | CPT/HCPCS: 99443 ==

== ENCOUNTER → 2024-06-13 11:12 | Outpatient (BNVA) | payer MEDICARE, SELFPAY | PROVIDERS: PCP Nurse Practitioner Family; Referring Provider Nurse Practitioner Family; Visit Provider Psychiatry & Neurology Neurology | DX: G70.00 Myasthenia gravis without (acute) exacerbation (principal); R41.3 Other amnesia | CPT/HCPCS: 99214 ==

== ENCOUNTER → 2024-06-25 10:58 | Outpatient (BNVA) | payer MEDICARE, SELFPAY | PROVIDERS: PCP Nurse Practitioner Family; Referring Provider Nurse Practitioner Family; Visit Provider Physician Assistant Surgical | DX: J44.9 Chronic obstructive pulmonary disease, unspecified (principal); C34.90 Malignant neoplasm of unspecified part of unspecified bronchus or lung; F17.200 Nicotine dependence, unspecified, uncomplicated | CPT/HCPCS: 99214 ==

== ENCOUNTER → 2024-10-17 12:17 | Outpatient (BNVA) | payer MEDICARE, SELFPAY | PROVIDERS: PCP Nurse Practitioner Family; Referring Provider Nurse Practitioner Family; Visit Provider Psychiatry & Neurology Neurology | DX: G70.00 Myasthenia gravis without (acute) exacerbation (principal); R41.3 Other amnesia | CPT/HCPCS: 99214 ==

== ENCOUNTER → 2025-01-03 14:02 | Outpatient (BNVA) | payer MEDICARE, SELFPAY | PROVIDERS: PCP Nurse Practitioner Family; Referring Provider Nurse Practitioner Family; Visit Provider Physician Assistant Surgical | DX: C34.90 Malignant neoplasm of unspecified part of unspecified bronchus or lung (principal); J44.9 Chronic obstructive pulmonary disease, unspecified; F17.200 Nicotine dependence, unspecified, uncomplicated; Z79.899 Other long term (current) drug therapy | CPT/HCPCS: 99214 ==

== ENCOUNTER → 2025-01-24 13:37 | Outpatient (BNVA) | payer MEDICARE, SELFPAY | PROVIDERS: PCP Nurse Practitioner Family; Referring Provider Nurse Practitioner Family; Visit Provider Psychiatry & Neurology Neurology | DX: G70.00 Myasthenia gravis without (acute) exacerbation (principal); R41.3 Other amnesia | CPT/HCPCS: 99215 ==

== ENCOUNTER → 2025-04-24 15:06 | Outpatient (BNVA) | payer MEDICARE, SELFPAY | PROVIDERS: PCP Nurse Practitioner Family; Referring Provider Nurse Practitioner Family; Visit Provider Psychiatry & Neurology Neurology | DX: G70.00 Myasthenia gravis without (acute) exacerbation (principal); R41.3 Other amnesia | CPT/HCPCS: 99214 ==